=== PATIENT | female | born 1970 | race Caucasian/White ===

== ENCOUNTER 2023-08-18 22:24 | Observation (INO) ==
[2023-08-19 00:32] LABS: Basophils # (auto) 0.05 K/uL (0.00-0.20); Basophils % (auto) 0.6 %; Eosinophils % (auto) 4.9 %; Hemoglobin 13.1 g/dl (12.0-16.0); Immature Granulocytes # (auto) 0.02 K/uL (0.01-0.20); Immature Granulocytes % (auto) 0.2 %; Lymphocytes # (auto) 2.69 K/uL (1.20-3.40); Lymphocytes % (auto) 32.7 %; Mean Corpuscular Hemoglobin 32.3 pg (25.0-34.0); Mean Corpuscular Hgb Conc 33.6 g/dL (32.0-36.0); Mean Corpuscular Volume 96.3 fL (80.0-100.0); Mean Platelet Volume 10.3 fL (9.4-12.4); Monocytes # (auto) 0.97 K/uL (0.11-0.59); Monocytes % (auto) 11.8 %; Neutrophils % (auto) 49.8 %; Platelet Count 250 K/uL (130-400); RDW Coefficient of Variation 17.2 % (11.5-14.5); RDW Standard Deviation 60.9 fL (36.4-46.3); Red Blood Count 4.05 M/uL (4.20-5.40); White Blood Count 8.23 K/ul (4.8-10.8)
[2023-08-19 00:33] LABS: Appearance Urine Clear (Clear); Bacteria Urine Automated None Seen (None Seen); Bilirubin Urine Negative (Negative); Blood Urine Negative (Negative); Cast Urine Automated 0-2 /lpf (0-2); Color Urine Yellow; Epithelial Cell Urine Auto 0-2 /hpf (0-2); Glucose Urine UA Negative (Negative); Ketones Urine Negative (Negative); Leukocyte Esterase Urine Trace (Negative); Nitrite Urine Negative (Negative); Protein Urine Negative (Negative); RBC Urine Automated 0-2 /hpf (0-2); Specific Gravity Urine 1.006 (1.000-1.030); Urobilinogen Urine Negative (Negative); WBC Urine Automated 0-5 /hpf (0-5)
[2023-08-19 00:47] LABS: Alanine Aminotransferase 20 U/L (7-52); Albumin Globulin Ratio 0.9 (0.9-2); Alkaline Phosphatase 123 U/L (34-104); Anion Gap 7 (3-11); Aspartate Aminotransferase 50 U/L (13-39); BUN Creatinine Ratio 16.1 (10-20); Bilirubin,Total 0.8 mg/dl (0.2-1.0); Blood Urea Nitrogen 9 mg/dl (6-23); Calcium 9.1 mg/dl (8.6-10.3); Carbon Dioxide 26 mmol/L (21-32); Chloride 107 mmol/L (98-107); Est GFR (African American) 122.5 ml/min; Est GFR (Non-African American) 105.7 ml/min; Globulin 3.4 gm/dl (2.5-4.0); Glucose 89 mg/dl (70-99(Fasting)); Potassium 3.9 mmol/L (3.5-5.1); Sodium 140 mmol/L (136-145); Total Protein 6.4 gm/dl (6.0-8.3)
--- NOTE | 2023-08-19 00:50 | Emergency Department Note ---
Impression & Plan Dyspnea, Lymphedema, Nausea ED Provider Note NAME: TARIK FLORES AGE: 53 SEX: F : 1970 ARRIVES VIA: Walk-In INFORMANT: Patient, family member ED PROVIDER(S): Kevin Boss MD CHIEF COMPLAINT: Shortness of breath, nausea MEDICAL DECISION MAKING: Patient presents due to concern for shortness of breath and nausea. IV was established and blood work was obtained. Patient was ordered Maalox and IV Protonix. Patient did have improvement in her nausea. Patient's blood work shows normal white count hemoglobin and platelet count. Kidney function is unremarkable. Initial troponin is negative. Repeat was ordered given the acute onset of the patient's symptoms prior to arrival. Urinalysis negative for obvious infection. No blood. Patient's chest x-ray does show elevation right hemidiaphragm with mild cardiomegaly but no obvious pneumonia or pneumothorax. As the patient shortness of breath could be a surrogate for atypical chest pain the patient does have a moderate heart heart score. I did consider escalation of care and admission. After further discussion of close outpatient follow-up versus inpatient monitoring the patient is agreeable for inpatient monitoring and treatment. The patient has not had any provocative cardiac testing prior. Repeat troponin is not elevated. I did speak the on-call hospital service Dr. Keen and the patient was admitted to the medicine service. Discussion w/ other healthcare providers: Dr. Keen inpatient medicine service Prior /Outside records reviewed: None Differential diagnosis: Reactive airway disease, pneumonia, pneumothorax, COPD, CHF, ACS, pulmonary embolism, musculoskeletal, GERD as well as other pathologies were considered. Diagnostics, as interpreted by me: ECG: Normal sinus rhythm, rate 99, normal HI and QRS, prolonged QTc, left axis deviation, possible slight depression in the anterior lateral leads, no priors for comparison Cardiac monitoring: An order was placed for continuous cardiac monitoring. The monitor shows a rate of 95 with sinus rhythm. Patient was placed on pulse oximetry Medical decision rules: Heart score Imaging studies: I informally interpreted the patient's chest x-ray shows mild cardiomegaly with elevation of the right hemidiaphragm but without obvious pneumonia or pneumothorax with formal report to follow. HPI: Patient presents due to concern for shortness of breath and nausea. The patient states that ever since December the patient has had off-and-on nausea with associated dry heaves. The patient states that it did seem to be getting better but noticed specifically that it worsened today around 9:30 PM. The patient does have a known history of prior bilateral lower extremity wounds venous stasis. The patient has also had prior ablations completed through [facility] and Dr. Feliciano's office. Patient states that she is taking Xarelto for no history of DVTs. Patient does have left greater than right lower extremity edema which is chronic in nature. Patient denies any significant changes. Patient is accompanied by her son who provides some of the history as well. Patient reports that she did take some Pepto-Bismol. The patient does feel little bit better compared to before. The patient did have some associated shortness of breath but no chest pains. Patient denies any cough or fever. Patient denies any smoking history. No recent surgeries procedures hospitalizations or recent prolonged car plane travel. PAST MEDICAL HISTORY: See Below PAST SURGICAL HISTORY: See Below SOCIAL HISTORY: See Below HOME MEDICATIONS: See Below ALLERGIES: See Below VITALS: See Below PHYSICAL EXAMINATION: GENERAL: NAD, non-toxic. Wearing glasses. EYE EXAM: Normal conjunctiva. PERRL, no anisocoria and EOM's grossly intact w/o pain. OROPHARYNX: Moist mucus membranes, grossly normal dentition. NECK: Trachea midline, no stridor. LUNGS: Clear to auscultation. Normal chest wall mechanics. HEART: NSR, no MRG. ABDOMEN: Abdomen soft, non-tender, no masses, no rebound or guarding. BACK: No CVA TTP. SKIN: No rashes and no bruising. UPPER EXTREMITIES: Upper extremities are grossly normal. LOWER EXTREMITIES: Grossly normal, right greater than left lower extremity edema without calf pain, venous stasis changes noted no warmth. No crepitus and compartments are soft. NEURO EXAM: A&O x3, cranial nerves II-XII grossly intact, normal speech, moves all 4 extremities. 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 Venous stasis ulcer limited to breakdown of skin with varicose veins Heart murmur DVT (deep vein thrombosis) in Obesity Surgical History History of tonsillectomy Social History Smoking Status: Never smoker Hx Alcohol Use: No Hx Substance Use: No Preferred Language: Armenian Visual Impairment: No Limitations Hearing Ability: Normal Casing Soaker Required: No Beliefs That Will Affect Care: None marital status: Single Current Living Situation: Family Current Living Situation Comment: Lives with brother current occupational status: employed current occupation: [employer] Feels Safe at Home: Yes Allergies Allergies Allergy/AdvReac Type Severity Reaction Status Date / Time Viscopaste Allergy Unknown Swelling Uncoded 07/23/23 13:02 Home Meds Home Medications Medication Instructions Recorded Confirmed cholecalciferol (vitamin D3) 1,250 50,000 unit PO .weekly 02/06/23 07/23/23 mcg (50,000 unit) capsule hydrocodone 5 mg-acetaminophen 325 1 tab PO BID PRN 02/06/23 07/23/23 mg tablet potassium chloride 20 mEq 40 meq PO BID 02/06/23 07/23/23 tablet,extended release prednisone 20 mg tablet 20 mg PO ONCE PRN flare up 02/06/23 07/23/23 rivaroxaban 20 mg tablet (Xarelto) 20 mg PO DAILY 02/06/23 07/23/23 silver sulfadiazine 1 % topical 1 applic topical BID 02/06/23 07/23/23 cream (Silvadene) triamcinolone acetonide 0.5 % 1 applic topical BID PRN 02/06/23 07/23/23 topical cream fluticasone propionate 50 2 spray intranasal DAILY PRN 02/12/23 07/23/23 mcg/actuation nasal spray,suspension furosemide 80 mg tablet (Lasix) 80 mg PO DAILY 02/12/23 07/23/23 metoprolol succinate 50 mg 50 mg PO HS 02/12/23 07/23/23 tablet,extended release 24 hr Previous Rx's Medication Instructions Recorded fluconazole 150 mg tablet 150 mg PO ONCE PRN yeast infection 05/12/23 symptoms #1 tab Results & Data (ED) Vital Signs Vital Signs - 24 hr 08/18/23 22:26 Temperature 36.8 C Temperature Source Temporal Artery Scan Pulse Rate 96 H Respiratory Rate 22 Respiratory Effort / Characteristics Non-Labored Spontaneous Respiratory Depth Normal Respiratory Pattern Regular Blood Pressure 131/73 Blood Pressure Mean 92 Blood Pressure Position Sitting Pulse Oximetry 98 Oxygen Delivery Method Room Air Sepsis Recent Fever Within 48 Hours No Sepsis New/Unexplained Change in Mental Status No Sepsis Action Taken by Nursing No Action Required Home Medications Current Medication List: was personally reviewed by me Laboratory Data Attestation: I reviewed the patient's lab results. 08/19/23 00:05 08/19/23 00:05 Lab Results 08/19/23 08/19/23 08/19/23 Range/Units 00:05 00:14 03:06 WBC 8.23 (4.8-10.8) K/ul RBC 4.05 L (4.20-5.40) M/uL Hgb 13.1 (12.0-16.0) g/dl Hct 39.0 (37.0-47.0) % MCV 96.3 (80.0-100.0) fL MCH 32.3 (25.0-34.0) pg MCHC 33.6 (32.0-36.0) g/dL RDW Std Deviation 60.9 H (36.4-46.3) fL RDW Coeff of Ashish 17.2 H (11.5-14.5) % Plt Count 250 (130-400) K/uL MPV 10.3 (9.4-12.4) fL Immature Gran % (Auto) 0.2 % Neut % (Auto) 49.8 % Lymph % (Auto) 32.7 % [place] % (Auto) 11.8 % Eos % (Auto) 4.9 % Baso % (Auto) 0.6 % Neut # (Auto) 4.10 (1.40-6.50) K/uL Lymph # (Auto) 2.69 (1.20-3.40) K/uL [place] # (Auto) 0.97 H (0.11-0.59) K/uL Eos # (Auto) 0.40 (0.00-0.50) K/uL Baso # (Auto) 0.05 (0.00-0.20) K/uL Immature Gran # (Auto) 0.02 (0.01-0.20) K/uL PT 13.5 H (9.0-12.0) Seconds INR 1.3 H (0.9-1.1) APTT 28 (21-31) Seconds PTT Ratio 1.0 Sodium 140 (136-145) mmol/L Potassium 3.9 (3.5-5.1) mmol/L Chloride 107 (98-107) mmol/L Carbon Dioxide 26 (21-32) mmol/L Anion Gap 7 (3-11) BUN 9 (6-23) mg/dl Creatinine 0.56 L (0.6-1.2) mg/dl Est Cr Clr Drug Dosing Not Reportable Est GFR ( Amer) 122.5 ml/min Est GFR (Non-Af Amer) 105.7 ml/min BUN/Creatinine Ratio 16.1 (10-20) Glucose 89 (70-99(Fasting)) mg/dl Calcium 9.1 (8.6-10.3) mg/dl Total Bilirubin 0.8 (0.2-1.0) mg/dl AST 50 H (13-39) U/L ALT 20 (7-52) U/L Alkaline Phosphatase 123 H (34-104) U/L Troponin I High Sens 6.9 10.3 (0-14) pg/ml Total Protein 6.4 (6.0-8.3) gm/dl Albumin 3.0 L (3.4-5.0) gm/dl Globulin 3.4 (2.5-4.0) gm/dl Albumin/Globulin Ratio 0.9 (0.9-2) Urine Color Yellow Urine Appearance Clear (Clear) Urine pH 6.0 (4.5-7.5) Ur Specific [place] 1.006 (1.000-1.030) Urine Protein Negative (Negative) Urine Glucose (UA) Negative (Negative) Urine Ketones Negative (Negative) Urine Blood Negative (Negative) Urine Nitrite Negative (Negative) Urine Bilirubin Negative (Negative) Urine Urobilinogen Negative (Negative) Ur Leukocyte Esterase Trace H (Negative) Urine WBC (Auto) 0-5 (0-5) /hpf Urine RBC (Auto) 0-2 (0-2) /hpf U Hyaline Cast (Auto) 0-2 (0-2) /lpf U Epithel Cells (Auto) 0-2 (0-2) /hpf Urine Bacteria (Auto) None Seen (None Seen) Administered Medications Discontinued Medications Al Hydrox/Mg Hydrox/Simethicone (Aluminum/Magnesium Susp 30 Ml Udc) 30 ml PO NOW STA Stop: 08/19/23 01:03 Last Admin: 08/19/23 01:19 Dose: 30 ml Documented By: JAYANT Pantoprazole Sodium 40 mg/ (Syringe) 10 mls @ 5 mls/min IV NOW ONE Stop: 08/19/23 01:03 Last Admin: 08/19/23 01:19 Dose: 5 mls/min Documented By: JAYANT Discharge Plan Visit Data Chief Complaint: Shortness of Breath/Dyspnea Stated Complaint: NAUSEA, WEAKNESS, SOB ED Provider: Kevin Boss Discharge Problem: Dyspnea, Lymphedema, Nausea Forms Stand Alone Forms: [employer] [facility] [employer] Prescriptions Prescriptions: No Action metoprolol succinate 50 mg tablet extended release 24 hr 50 mg PO HS furosemide [Lasix] 80 mg tablet 80 mg PO DAILY fluconazole 150 mg tablet 150 mg PO ONCE PRN (Reason: yeast infection symptoms) Qty: 1 0RF Rx Instructions: Do not take with hydrocodone. cholecalciferol (vitamin D3) 1,250 mcg (50,000 unit) capsule 50,000 unit PO .weekly hydrocodone-acetaminophen 5-325 mg tablet 1 tab PO BID PRN potassium chloride 20 mEq tablet extended release 40 meq PO BID prednisone 20 mg tablet 20 mg PO ONCE PRN (Reason: flare up) Xarelto 20 mg tablet 20 mg PO DAILY Rx Instructions: must administer with evening meal silver sulfadiazine [Silvadene] 1 % cream 1 applic topical BID Rx Instructions: apply a 1.5 mm thickness triamcinolone acetonide 0.5 % cream 1 applic topical BID PRN fluticasone propionate 50 mcg/actuation spray,suspension 2 spray intranasal DAILY PRN Rx Instructions: administer into each nostril Referrals Referrals: Joe Edwards M.D. [Primary Care Provider] - Discharge Problem: Dyspnea Qualifiers: Dyspnea type: shortness of breath Qualified Code(s): R06.02 - Shortness of breath
[2023-08-19 00:53] LABS: Troponin I High Sensitivity 6.9 pg/ml (0-14)
[2023-08-19 01:03] LABS: INR 1.3 (0.9-1.1); Partial Thromboplastin Time 28 Seconds (21-31); Prothrombin Time 13.5 Seconds (9.0-12.0)
[2023-08-19] MEDS: PANTOprazole 40 MG in SYRINGE 0 ML IV ONE (01:19)
[2023-08-19] MEDS: ALUMINUM/MAGNESIUM SUSP 30 ML UDC PO STA (01:19)
--- NOTE | 2023-08-19 04:44 | History & Physical Report ---
Date of Service August 19, 2023 Assessment & Plan (1) DVT, lower extremity: (2) Allergic symptoms: (3) Arthritis: (4) Hypertension: (5) Chronic venous insufficiency: (6) Venous stasis ulcer limited to breakdown of skin with varicose veins: (7) Nausea: (8) Dyspnea: (9) Acid reflux: Plan Shortness of breath/dyspnea on exertion/hypertension- The patient will be admitted to telemetry for serial cardiac enzymes, serial EKG's, cardiac rhythm monitoring and a 2-D echocardiogram with Dopplers. Initial troponin 6.9 with follow-up 10.3 Continue metoprolol succinate at bedtime Acid reflux Patient's presenting symptoms of shortness of breath and nausea may be due to this diagnosis She has been taking famotidine 40 mg at bedtime Would add pantoprazole in hospital or when she gets home take Nexium as her does in the morning, and continued famotidine at bedtime If no symptoms improvement in 2 weeks, and heart workup is negative, she should get an endoscopy Chronic venous insufficiency/lymphedema/venous stasis ulcers- She follows with outpatient wound care every 2 weeks She has been resistant to getting a wound VAC Continue furosemide and potassium Consult wound care DVT lower extremity- Continue Xarelto History of Present Illness Chief Complaint: The patient presents to the emergency department with complaint of shortness of breath and nausea that began sometime after having a muffin for breakfast Primary Care Provider: Joe Edwards M.D. With The patient is a 53-year-old female with a past medical history including bilateral lower extremity venous ulcers, history of DVT lower extremity, chronic lymphedema with lymphedema pumps, vitamin D deficiency, allergic rhinitis, arthritis, hypertension and morbid obesity. The patient presents to the emergency department due to the development of shortness of breath, dyspnea on exertion and nausea without vomiting after having multiple breakfast. She does not also have the symptoms on other days, and usually more towards the evening. She has been taking famotidine 40 mg at bedtime without much relief Allergies Allergy/AdvReac Type Severity Reaction Status Date / Time Viscopaste Allergy Unknown Swelling Uncoded 07/23/23 13:02 Home Medications Medication Instructions Recorded Confirmed Type cholecalciferol (vitamin D3) 1,250 50,000 unit PO .weekly 02/06/23 07/23/23 History mcg (50,000 unit) capsule hydrocodone 5 mg-acetaminophen 325 1 tab PO BID PRN 02/06/23 07/23/23 History mg tablet potassium chloride 20 mEq 40 meq PO BID 02/06/23 07/23/23 History tablet,extended release prednisone 20 mg tablet 20 mg PO ONCE PRN flare up 02/06/23 07/23/23 History rivaroxaban 20 mg tablet (Xarelto) 20 mg PO DAILY 02/06/23 07/23/23 History silver sulfadiazine 1 % topical 1 applic topical BID 02/06/23 07/23/23 History cream (Silvadene) triamcinolone acetonide 0.5 % 1 applic topical BID PRN 02/06/23 07/23/23 History topical cream fluticasone propionate 50 2 spray intranasal DAILY PRN 02/12/23 07/23/23 History mcg/actuation nasal spray,suspension furosemide 80 mg tablet (Lasix) 80 mg PO DAILY 02/12/23 07/23/23 History metoprolol succinate 50 mg 50 mg PO HS 02/12/23 07/23/23 History tablet,extended release 24 hr fluconazole 150 mg tablet 150 mg PO ONCE PRN yeast infection 05/12/23 07/23/23 Rx symptoms #1 tab Past Med/Surg History Problem List (Updated 08/19/23 @ 05:02 by Yang King MD) Acid reflux Nausea Venous stasis ulcer limited to breakdown of skin with varicose veins Chronic venous insufficiency Hypertension Arthritis Allergic symptoms DVT, lower extremity Nausea (Acute) Dyspnea (Acute) Lymphedema (Acute) Seroma due to trauma Venous stasis ulcer (Acute) Medical History 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 Venous stasis ulcer limited to breakdown of skin with varicose veins Heart murmur DVT (deep vein thrombosis) in Obesity Surgical History History of tonsillectomy Social History Smoking Status: Never smoker Hx Alcohol Use: No Hx Substance Use: No Preferred Language: [place] Visual Impairment: No Limitations Hearing Ability: Normal Male Impersonator Required: No Beliefs That Will Affect Care: None marital status: Single Current Living Situation: Family Current Living Situation Comment: Lives with brother current occupational status: employed 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 The review of systems is otherwise negative other than for that already noted above, and at least 10 systems have been reviewed. Physical Exam Physical Exam: The patient is awake, alert and oriented 3, well developed and well nourished, normocephalic and atraumatic, lying in bed and in no acute distress. HEENT--PERRL, EOMI, mucous membranes and oropharynx normal Neck--supple. No JVD. No bruits. Thyroid normal, trachea midline, no adenopathy. Heart--normal S1 and S2. Systolic murmur. No rubs or gallops. Lungs--clear bilaterally, no respiratory distress, no accessory muscle use. Abdomen--normal bowel sounds and soft. Nontender. Nondistended. Morbidly obese Extremities--chronic venous stasis changes as noted in records Dermatologic--normal skin turgor, normal color, no abnormal lymph nodes, no rash. Neurologic--cranial nerves II through XII grossly intact. Rheumatologic--limited exam due to body habitus Psychiatric--normal affect. Results & Data Results & Data Vital Signs (Past 12 Hours) Vital Signs Temp Pulse Resp BP Pulse Ox O2 Del Method 08/18/23 22:26 36.8 C 96 H 22 131/73 98 Room Air Code Status & VTE Plan Code Status Full code VTE Prophylaxis Plan VTE Prophylaxis will be ordered: Yes PG Care Time/CCT Total # of Minutes Spent Total Time Spent with Patient: Total time spent is greater than 50% in coordination of care (as documented) at patient's floor/unit and/or counseling patient: Coding Level of Care Code 97437 INT INP/OBS CARE MIN Diagnoses DVT, lower extremity I82.409 Allergic symptoms T78.40XA Arthritis M19.90 Hypertension I10 Chronic venous insufficiency I87.2 Venous stasis ulcer limited to breakdown of skin with varicose veins I83.009; L97.901 Nausea R11.0 Dyspnea R06.02 Dyspnea type: shortness of breath Acid reflux K21.9 (8) Dyspnea Dyspnea type: shortness of breath Qualified Code(s): R06.02 - Shortness of breath
[2023-08-19] MEDS ORDERED: FLUTICASONE PROPIONATE NA SPR 16 GM BTL NAE PRN (05:12)
[2023-08-19] MEDS ORDERED: ONDANSETRON INJ 2 MG/ML 2 ML VIAL IV PRN (05:12)
[2023-08-19] MEDS ORDERED: ACETAMINOPHEN 325 MG TAB PO PRN (05:12)
[2023-08-19] MEDS: METOPROLOL SUCC 50MG EXT REL TAB PO STA (05:40)
[2023-08-19] MEDS: RIVAROXABAN 20 MG TAB PO STA (05:40)
--- NOTE | 2023-08-19 07:38 | XRay Report ---
SINGLE VIEW CHEST CLINICAL HISTORY: Atypical chest pain. FINDINGS: An AP, portable, upright chest radiograph is obtained. No prior studies are available for c omparison at the time of dictation. The examination is degraded by portable technique and apical lord otic positioning. The heart is enlarged noting atherosclerotic calcification of the thoracic aorta. T he pulmonary vasculature is noncongested. There is mild elevation of right hemidiaphragm and bibasila r atelectasis. The lungs and pleural spaces are clear. No pneumothorax is seen. The skeletal structur es are osteopenic. The bony thorax is grossly intact. IMPRESSION: Cardiomegaly with no acute cardiopulmonary abnormality identified. ACT 112: Negative or not required by law. Electronically signed by: Moody Fowler M.D. 08/19/2023 7:36 AM
[2023-08-19] MEDS: METOPROLOL SUCC 25MG EXT REL TAB PO STA (07:45)
[2023-08-19] MEDS ORDERED: RIVAROXABAN 20 MG TAB PO SCH ×2 (09:00→17:00)
[2023-08-19] MEDS: FUROSEMIDE 80 MG TAB PO SCH (09:23)
[2023-08-19] MEDS: PANTOprazole 40 MG TAB PO SCH (09:24)
[2023-08-19] MEDS: POTASSIUM CHLORIDE CRTAB 20 MEQ TABCR PO SCH (09:24)
[2023-08-19] MEDS: SILVER SULFADIAZINE 1% CR 50 GM JAR TOP SCH (09:24)
--- NOTE | 2023-08-19 10:52 | Electrocardiogram Report ---
Test Reason : Blood Pressure : / mmHG Vent. Rate : 099 BPM Atrial Rate : 099 BPM P-R Int : 158 ms QRS Dur : 096 ms QT Int : 382 ms P-R-T Axes : 039 -26 025 degrees QTc Int : 490 ms Poor data quality, interpretation may be adversely affected Normal sinus rhythm Left atrial enlargement Left ventricular hypertrophy ( R in aVL , [place] product ) Nondiagnostic lateral Q waves Prolonged QT Abnormal ECG No previous ECGs available Confirmed by Tyler Denton ([id number]) on 08/19/2023 10:52:48 AM Referred By: REFERRED SELF Confirmed By:Tyler Denton
--- NOTE | 2023-08-19 11:10 | XCELERA ---
[id number]
[2023-08-19] MEDS: HYDROCODONE/ACETAMOPHEN 5/325MG TAB PO PRN (13:37)
[2023-08-19] MEDS ORDERED: Nursing to Pharmacy Communication SCH (13:45)
--- NOTE | 2023-08-19 16:55 | Discharge Summary ---
Date of Service August 19, 2023 Admission HPI Per Admitting Provider The patient is a 53-year-old female with a past medical history including bilateral lower extremity venous ulcers, history of DVT lower extremity, chronic lymphedema with lymphedema pumps, vitamin D deficiency, allergic rhinitis, arthritis, hypertension and morbid obesity. The patient presents to the emergency department due to the development of shortness of breath, dyspnea on exertion and nausea without vomiting after having multiple breakfast. She does not also have the symptoms on other days, and usually more towards the evening. She has been taking famotidine 40 mg at bedtime without much relief Admission Exam Per Admitting Provider The patient is awake, alert and oriented 3, well developed and well nourished, normocephalic and atraumatic, lying in bed and in no acute distress. HEENT--PERRL, EOMI, mucous membranes and oropharynx normal Neck--supple. No JVD. No bruits. Thyroid normal, trachea midline, no adenopathy. Heart--normal S1 and S2. Systolic murmur. No rubs or gallops. Lungs--clear bilaterally, no respiratory distress, no accessory muscle use. Abdomen--normal bowel sounds and soft. Nontender. Nondistended. Morbidly obese Extremities--chronic venous stasis changes as noted in records Dermatologic--normal skin turgor, normal color, no abnormal lymph nodes, no rash. Neurologic--cranial nerves II through XII grossly intact. Rheumatologic--limited exam due to body habitus Psychiatric--normal affect. Principal Diagnosis Shortness of breath Discharge Data Allergies Allergy/AdvReac Type Severity Reaction Status Date / Time Viscopaste Allergy Unknown Swelling Uncoded 07/23/23 13:02 Consultations 08/19/23 03:58 ED Decision to Admit Stat Hospital Course (1) Dyspnea: (2) Hypertension: (3) Chronic venous insufficiency: (4) Venous stasis ulcer limited to breakdown of skin with varicose veins: (5) Acid reflux: Plan Pt is a 53 yo female with a past med hx of chronic venous insufficiency with lymphedema, leg ulcer currently being treated outpatient by wound care, hx DVT on xarelto, and GERD who presents to the hospital on 08/17 for SOB and chest burning sensation. #Shortness of breath, resolved #Chest burning, resolved - the patient will be admitted to telemetry for serial cardiac enzymes, serial EKG's, cardiac rhythm monitoring and a 2-D echocardiogram with Dopplers - Initial troponin 6.9 with follow-up 10.3, echo EF 65-70% no wall abnormalities - Continued metoprolol succinate at bedtime - will add pantoprazole to home regime instead of prilosec since it worked better for her here to relieve symptoms - suspect the chest burning was more likely related to GERD as it resolved yesterday, SOB resolved yesterday shortly after admission as well #Acid reflux - patient's presenting symptoms of shortness of breath and nausea may be due to this diagnosis - She has been taking famotidine 40 mg at bedtime - will add pantoprazole to home regime - If no symptoms improvement in 2 weeks, and heart workup is negative, consider endoscopy #Chronic venous insufficiency/lymphedema/venous stasis ulcers- - She follows with outpatient wound care every 2 weeks - She has been resistant to getting a wound VAC - continue outpatient wound care Total Time Total Time Spent Total Time Spent (In Minutes): As per attending attestation. Discharge Plan Discharge Items Patient Disposition: Home - Self-Care Reason For Visit: NAUSEA, SOB Discharge Diagnosis: Shortness of breath, GERD Activity: Per Instructions section Non-emergency contact: Primary Care Provider Call non-emergency contact if: you have any medication questions and your symptoms worsen Follow-up/Referrals: Joe Edwards M.D. [Primary Care Provider] - Diet: Regular Addtl Attending Provider Instructions: You were hospitalized for shortness of breath. We did several tests including EKG, troponin blood heart enzyme level, and an echocardiogram (also known as an ultrasound of your heart) which were all normal and rule out heart-related causes for sensations or chest burning or shortness of breath. We think that your nausea and chest burning is most likely due to acid reflux or inflammation of the stomach. We have sent for a medication called pantoprazole to your pharmacy that you can take insteaf of the [id number] prilosec you were previously taking to help decrease the amount of acid in the stomach that can irritate the stomach lining. You should continue your routine wound care and plan to follow-up with a primary care physician this week. Pending Studies at Discharge: Yes Stand-Alone Forms: My [facility] Medications and MA Order Prescriptions: New pantoprazole 40 mg Tablet,Delayed Release (Dr/Ec) 40 mg PO QAM Qty: 30 2RF Continued furosemide [Lasix] 80 mg tablet 80 mg PO DAILY fluconazole 150 mg tablet 150 mg PO ONCE PRN (Reason: yeast infection symptoms) Qty: 1 0RF Rx Instructions: Do not take with hydrocodone. cholecalciferol (vitamin D3) 1,250 mcg (50,000 unit) capsule 50,000 unit PO .weekly hydrocodone-acetaminophen 5-325 mg tablet 1 tab PO BID PRN (Reason: Pain) potassium chloride 20 mEq tablet extended release 40 meq PO BID prednisone 20 mg tablet 20 mg PO ONCE PRN (Reason: flare up) Xarelto 20 mg tablet 20 mg PO DAILY Rx Instructions: must administer with evening meal triamcinolone acetonide 0.5 % cream 1 applic topical BID PRN (Reason: Other) fluticasone propionate 50 mcg/actuation spray,suspension 2 spray intranasal DAILY PRN (Reason: Cold Symptoms) Rx Instructions: administer into each nostril metoprolol tartrate 25 mg Tablet 25 mg PO DAILY Discharge Orders: Discharge Order (Routine); Ordered 08/19/23 Ordered By: Lisset Viveros/Other Patient Handouts: What Is GERD? Admission Data Admit Date/Time: 08/19/23 04:44 Attending Provider: Delmi Smith Admit Provider: Yang King Primary Care Provider: Joe Edwards Other Providers: Yang King Other Interventions: Discharge Summary Assessment (RN) Last Done: 08/19/23 17:19 Supervising Physician Co-Signing Physician Notes Attending Physician Supervision Note: I independently interviewed and examined the patient and verified the miller history and physical, reviewed labs and image studies and agree with findings and care plan noted above. Resident Activity Tracking Resident Involvement: Resident Care Provided Care Provided: Adult Hospital Medicine
[2023-08-19] MEDS ORDERED: METOPROLOL SUCC 25MG EXT REL TAB PO SCH (21:00)
[2023-08-19] MEDS ORDERED: METOPROLOL SUCC 50MG EXT REL TAB PO SCH (21:00)
[2023-08-19] MEDS ORDERED: FAMOTIDINE 40 MG TABLET PO SCH (21:00)
== END 2023-08-19 18:16 | disposition home or self-care (01) ==
LOC: ED 22:24 → EDINP 22:24 → SUATTDRO 08-19 04:44 → 2W 08-19 05:12